=== PATIENT | male | born 1985 | race Caucasian/White ===

== ENCOUNTER 2018-08-22 10:57 | Emergency (ER) | payer SELFPAY | END 2018-08-22 12:32 | disposition home or self-care (01) | LOC: MADERS 10:57 | DX: J06.9 Acute upper respiratory infection, unspecified (principal); I10 Essential (primary) hypertension; F43.10 Post-traumatic stress disorder, unspecified; F17.210 Nicotine dependence, cigarettes, uncomplicated | CPT/HCPCS: 99283 ==